=== PATIENT | male | born 1995 | race Caucasian/White ===

== ENCOUNTER 2023-03-29 20:20 | Emergency (ER) | payer OTHER, BC, SELFPAY ==
[2023-03-29] VITALS (12 sets, daily range): BP systolic 105–133; BP diastolic 75–99; PULSE 52–73; RESP 12–19; TEMP 36.2–36.6; O2SAT 98–100
[2023-03-29 20:45] LABS: Basophils Percent Auto 0.3 % (0.2-1.2); Eosinophils Absolute Auto 0.2 K/mm3 (0-0.3); Eosinophils Percent Auto 2.4 % (0-4.4); Hematocrit 45.8 % (42.0-52.0); Hemoglobin 16.1 g/dL (14.0-18.0); Immature Granulocyte Absolute 0.01 K/mm3 (0.00-0.031); Immature Granulocyte Percent A 0.1 % (0-0.5); Lymphocytes Absolute Auto 2.27 K/mm3 (0.9-3.2); Lymphocytes Percent Auto 25.2 % (18.3-44.2); Mean Corpuscular HGB Conc 35.2 g/dl (32-36); Mean Corpuscular Hemoglobin 31.5 pg (26-34); Mean Corpuscular Volume 89.6 fl (80-100); Monocytes Absolute Auto 1.3 K/mm3 (0.1-0.6); Monocytes Percent Auto 14.7 % (2.6-8.5); Neutrophils Absolute Auto 5.2 K/mm3 (1.3-6.7); Neutrophils Percent Auto 57.3 % (45.5-73.1); Platelet Count Result 200 k/mm3 (150-375); Red Blood Count 5.11 M/mm3 (4.6-6.20); Red Cell Distribution Width 11.9 % (11.5-14.5)
[2023-03-29 20:55] LABS: Prothrombin Time 14.1 Seconds (11.1-14.7)
[2023-03-29 20:56] LABS: Alanine Aminotransferase 22 U/L (6-50); Albumin Level 4.3 g/dL (3.5-5.1); Alkaline Phosphatase 71 U/L (38-126); Anion Gap 11 mmol/L (8-16); Aspartate Amino Transferase 26 U/L (17-59); Bilirubin,Total 0.7 mg/dL (0.2-1.3); Blood Urea Nitrogen 10 mg/dL (9-20); Calcium 9.2 mg/dL (8.4-10.2); Carbon Dioxide 18 mmol/L (22-30); Chloride 105 mmol/L (98-107); Estimated CRCL calculation 109 ml/min; Estimated Glomerular Filt Rate > 60; Glucose 105 mg/dL (65-110); Sodium 134 mmol/L (137-145)
[2023-03-29 21:23] LABS: Influenza A QL RT-PCR Negative (Negative); Influenza B QL RT-PCR Negative (Negative); RSV RNA, RT-PCR Negative (Negative); SARS-CoV-2 RNA PCR Negative (Negative)
[2023-03-29] MEDS: POTASSIUM CHLORIDE 20 MEQ PACKET (FOR LIQUID) 40 MEQ PO (22:00)
[2023-03-29] MEDS: LOPERAMIDE HCL 2 MG CAPSULE 4 MG PO (22:01)
[2023-03-29] MEDS: DICYCLOMINE HCL INJ 20 MG/2 ML VIAL IM (22:02)
[2023-03-29 22:05] LABS: Appearance Urine Clear (Clear); Bilirubin Urine Negative (Negative); Blood Urine Negative (Negative); Color Urine Yellow (Yellow); Glucose Urine UA Negative (Negative); Ketones Urine Negative (Negative); Leukocyte Esterase Ur Negative LEU/UL (Negative); Nitrate Urine Negative (Negative); Protein Urine Negative (Negative); Specific Grav Ur 1.005 (1.001-1.035); Urobilinogen Urine 0.2 mg/dL (<2.0)
[2023-03-29] MEDS: SODIUM CHLORIDE 0.9% IV 2,000 ML 999 ML IV CONT (22:08)
[2023-03-29 22:09] LABS: Add Urine Microscopic? NO
--- NOTE | 2023-03-29 22:58 | ED.GENADULT ---
HPI - General Adult General Chief complaint: GI Bleed Stated complaint: black stool Time Seen by Provider: 03/29/23 21:13 History of Present Illness HPI narrative: 27-year-old male presenting with 3 days of diarrhea. In since symptoms started Wednesday night. Multiple episodes of diarrhea. He has been taking Pepto-Bismol with minimal relief. He came to the emergency department because he had a black stool his family told him the GI bleed. patient reports of fever on Wednesday but has been afebrile since then. 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 ?No current fevers, chest pain difficulty breathing. He does have diffuse crampy abdominal pain that improves after his episode of diarrhea. No urinary symptoms Related Data Allergies Allergy/AdvReac Type Severity Reaction Status Date / Time No Known Allergies Allergy Verified 03/29/23 20:25 Exam Narrative: APPEARANCE: No apparent distress. Head: atraumatic. EYES: EOMI, NOSE: Atraumatic NECK: Trachea midline RESPIRATORY: No increased rate of breathing clear to auscultation CARDIOVASCULAR: RRR, ABDOMINAL: Non-distended MUSCULOSKELETAl: Soft nontender no guarding rebound no CVA tenderness NEURO: Alert. Moving 4/4 extremities SKIN:: Warm, dry. Normal color PSYCHIATRIC: Normal affect Course Vital Signs Vital signs: Vital Signs Temperature 97.2 F L 03/29/23 20:22 Pulse Rate 70 03/29/23 20:22 Respiratory Rate 15 03/29/23 20:22 Blood Pressure 128/82 03/29/23 20:22 Pulse Oximetry 98 03/29/23 20:22 Oxygen Delivery Room Air 03/29/23 20:22 Temperature 97.8 F 03/29/23 20:52 Pulse Rate 62 03/29/23 21:58 Respiratory Rate 18 03/29/23 20:52 Blood Pressure 133/80 03/29/23 21:58 Pulse Oximetry 99 03/29/23 20:52 Oxygen Delivery Room Air 03/29/23 20:22 Medical Decision Making MDM Narrative Medical decision making narrative: -Course: 27-year-old male presenting with 3 days of diarrhea abdominal exam benign. Vital signs stable. Workup showed he was slightly hypokalemic which was repleted. Given symptomatic treatment with Bentyl and loperamide. Re-evaluation vital signs still stable. Abdominal exam benign. Tolerating p.o.. Patient discharged with return precautions. Patient's initial concern about GI bleed due to black stools is likely due to Pepto-Bismol. 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 Metabolic panel showed hypokalemia which was repleted. Urine and infection. Viral swabs negative. -Interventions: 2 L fluid, Bentyl, loperamide, 40meq potassium po -Shared decision making / Disposition: Discharged -RX Bentyl, loperamide Vital Signs Vital Signs: Vital Signs Temperature 97.2 F L 03/29/23 20:22 Pulse Rate 70 03/29/23 20:22 Respiratory Rate 15 03/29/23 20:22 Blood Pressure 128/82 03/29/23 20:22 Pulse Oximetry 98 03/29/23 20:22 Oxygen Delivery Room Air 03/29/23 20:22 Temperature 97.8 F 03/29/23 20:52 Pulse Rate 62 03/29/23 21:58 Respiratory Rate 18 03/29/23 20:52 Blood Pressure 133/80 03/29/23 21:58 Pulse Oximetry 99 03/29/23 20:52 Oxygen Delivery Room Air 03/29/23 20:22 Lab Data 03/29/23 20:35 03/29/23 20:35 Labs: Lab Results 03/29/23 03/29/23 Range/Units 20:35 21:57 WBC 9.0 (4.5-10.0) K/mm3 RBC 5.11 (4.6-6.20) M/mm3 Hgb 16.1 (14.0-18.0) g/dL Hct 45.8 (42.0-52.0) % MCV 89.6 (80-100) fl MCH 31.5 (26-34) pg MCHC 35.2 (32-36) g/dl RDW 11.9 (11.5-14.5) % Plt Count 200 (150-375) k/mm3 MPV 10.0 (7.4-10.4) fl Immature Gran % (Auto) 0.1 (0-0.5) % Neut % (Auto) 57.3 (45.5-73.1) % Lymph % (Auto) 25.2 (18.3-4
== END 2023-03-29 23:29 | disposition home or self-care (01) ==
PROVIDERS: Emergency Provider Emergency Medicine; PCP Family Medicine
DX: R19.7 Diarrhea, unspecified (principal); Z20.822 Contact with and (suspected) exposure to COVID-19
CPT/HCPCS: 36415; 80053; 81003; 85025; 85610; 85730; 86850; 86900; 86901; 87637; 96360; 96372; 99283; A9270; J0500; J7030